=== PATIENT | female | born 1980 | race Caucasian/White ===

== ENCOUNTER 2022-12-07 11:37 | Outpatient (CLI) | payer MEDICARE, SELFPAY | END 2022-12-07 11:38 | disposition home or self-care (01) | PROVIDERS: Visit Provider Family Medicine | DX: Z01.419 Encounter for gynecological examination (general) (routine) without abnormal findings (principal); E66.9 Obesity, unspecified; G43.909 Migraine, unspecified, not intractable, without status migrainosus; R20.2 Paresthesia of skin; Z13.1 Encounter for screening for diabetes mellitus; Z13.6 Encounter for screening for cardiovascular disorders; G25.81 Restless legs syndrome; Z13.29 Encounter for screening for other suspected endocrine disorder; Z13.0 Encounter for screening for diseases of the blood and blood-forming organs and certain disorders involving the immune mechanism | CPT/HCPCS: 80053; 80061; 82306; 82607; 83540; 83550 ==

== ENCOUNTER 2023-12-27 15:47 | Outpatient (CLI) | payer OTHER, SELFPAY | END 2023-12-27 15:48 | disposition home or self-care (01) | PROVIDERS: PCP Family Medicine; Visit Provider Emergency Medicine | DX: E61.1 Iron deficiency (principal); Z13.220 Encounter for screening for lipoid disorders; E53.8 Deficiency of other specified B group vitamins; Z13.1 Encounter for screening for diabetes mellitus | CPT/HCPCS: 80048; 80061; 82607; 82728; 82746 ==

== ENCOUNTER 2024-07-29 04:06 | Day surgery (SDC) | payer OTHER, SELFPAY ==
[2024-07-29] VITALS (22 sets, daily range): BP systolic 117–157; BP diastolic 85–116; PULSE 72–116; RESP 16–20; TEMP 36.1–36.8; O2SAT 92–99; BMI 29.0
--- NOTE | 2024-07-29 04:13 | ED.CHESTPAIN ---
HPI - Chest Pain General Time Seen by Provider: 04:13 Date Seen: 07/29/24 Chief Complaint: Chest Pain Stated Complaint: chest pain Time Seen by Provider: 07/29/24 04:13 Source: patient, family, RN notes reviewed and old records reviewed Mode of arrival: ambulatory Limitations: no limitations History of Present Illness HPI narrative: 43-year-old female who presents today with upper abdominal pain. This started about 9:00 p.m. last night, 7 hours prior to evaluation in the department. She did vomit twice. Pain is constant and radiates into the back. Denies shortness of breath, pain is worse with movement, has not taken anything for her pain. No diarrhea. Prior left oophorectomy and laparoscopy for endometriosis but otherwise no prior abdominal surgeries. Related Data Home Medications ?Medication ?Instructions ?Recorded ?Confirmed fexofenadine 180 mg tablet 180 mg PO QDAY 12/07/22 12/27/23 (Mary Allergy) diphenhydramine HCl 25 mg capsule 25 mg PO QHS PRN 01/16/24 01/16/24 (Benadryl) Previous Rx's ?Medication ?Instructions ?Recorded triamcinolone acetonide 0.1 % 1 applic topical BID #453.6 grams 12/07/22 topical cream ferrous fum-vit C-vit B12-FA 460 1 cap PO QDAY #90 caps 12/08/22 mg-60 mg-0.01 mg-1 mg capsule baclofen 10 mg tablet 10 mg PO BID #180 tabs 12/27/23 duloxetine 60 mg capsule,delayed 60 mg PO DAILY #90 caps 12/27/23 release gabapentin 300 mg capsule 600 mg (2 x 300 mg) PO QPM #180 12/27/23 caps Allergies Allergy/AdvReac Type Severity Reaction Status Date / Time No Known Allergies Allergy Verified 07/29/24 04:17 [facility] Medical History (Updated 07/29/24 @ 06:49 by Bartolome Rivas MD) Contact dermatitis ?L25.9 - Unspecified contact dermatitis, unspecified cause (ICD-10) Rash ?R21 - Rash and other nonspecific skin eruption (ICD-10) Screening for diabetes mellitus ?Z13.1 - Encounter for screening for diabetes mellitus (ICD-10) Screening for hyperlipidemia ?Z13.220 - Encounter for screening for lipoid disorders (ICD-10) History of severe acute respiratory syndrome coronavirus 2 (SARS-CoV-2) disease ?Z86.16 - Personal history of COVID-19 (ICD-10) Endometriosis (10/20/10) ?N80.9 - Endometriosis, unspecified (ICD-10) Endometrioma of ovary ?N80.1 - Endometriosis of ovary (ICD-10) Cyst of ovary ?N83.209 - Unspecified ovarian cyst, unspecified side (ICD-10) Surgical History (Updated 04/14/22 @ 17:27 by Maritza Edwards MD) H/O laparoscopy (03/22/22) ?Z98.890 - Other specified postprocedural states (ICD-10) H/O laparoscopy (10/20/10) ?Z98.890 - Other specified postprocedural states (ICD-10) History of breast surgery ?Z98.890 - Other specified postprocedural states (ICD-10) History of breast biopsy (08/26/13) ?Z98.890 - Other specified postprocedural states (ICD-10) Family History (Updated 04/04/22 @ 14:26 by Layla Moreno) Mother Congenital heart defect Father Diabetes Other Esophageal cancer Social History (Updated 12/27/23 @ 15:51 by Milly Castro MD) Narrative: Has a son, Pasha. : 04/29/2004 vape nicotine, etoh 4 beers/wk Smoking Status: Never smoker Little interest or pleasure in doing things: not at all Feeling down, depressed, or hopeless: not at all Exam Narrative Exam Narrative: General: Well-developed and well-nourished, no acute distress Head: Atraumatic and normocephalic Eyes: Pupils are equal reactive, extraocular motions intact, conjunctiva clear ENT: External nose and ears are normal, posterior pharynx without erythema or exudate Neck: No midline cervical tenderness, full spontaneous range of motion the neck, trachea midline, no adenopathy Heart: Regular rate and rhythm no murmurs or thrills Lungs: Clear to auscultation bilaterally without wheezes or crackles Abdomen: Soft, right upper quadrant and epigastric tenderness, nondistended with active bowel sounds Musculoskeletal: No tenderness, deformity, or edema Neurologic: Awake, alert, and oriented x3, no gross focal neurologic deficits, cranial nerves intact as tested Psych: Mood and affect are appropriate Skin: No rashes Const Vital Signs, click to edit/add: Vital Signs - 24 hr 07/29/24 04:13 Temperature 97.6 F Pulse Rate [Right Pulse Oximeter] 95 Respiratory Rate 18 Blood Pressure [Right Upper Arm] 138/115 H Pulse Oximetry 98 Oxygen Delivery Method Room Air Course Course ED Course: Patient seen examined, reviewed most recent office visit from December 2023, that visit addressed chronic neck pain and patient is on disability is, also history of depression in was doing well at that time. Patient presents today with upper abdominal pain along with vomiting that started about 7 hours ago. On exam, she has right upper quadrant and epigastric tenderness. Concern for acute cholecystitis, biliary colic, pancreatitis. No right lower quadrant tenderness to suggest acute appendicitis. Consider CT scan of the abdomen and pelvis but given likely biliary source, right upper quadrant ultrasound is ordered. Labs ordered along with Zofran and Dilaudid for symptom management. EKG independently interpreted by me performed at 4:19 a.m. demonstrates sinus rhythm rate 83, no acute ST elevations or depressions, normal axis, normal intervals, ID 140, QTC 413. Reevaluation(s) Time of Reevaluation #1: 05:36 Reevaluation #1: Labs ordered and independently interpreted by me with normal CBC, normal hepatic panel, normal lipase, mild hyponatremia and hypokalemia, negative troponin. Time of Reevaluation #2: 06:44 Reevaluation #2: Reviewed radiology interpretation of ultrasound which demonstrates acute cholecystitis with cholelithiasis. Updated patient with plan, unfortunately she was drinking fluids in the department after told her to not drink anything. Will discuss with general surgery. Time of Reevaluation #3: 07:21 Reevaluation #3: Care discussed with Dr. Pollard who will see the patient in the department. Anticipate sign out to oncoming provider. Vital Signs Vital signs: Initial Vital Signs Temperature 97.6 F 07/29/24 04:13 Temperature Source Temporal Artery Scan 07/29/24 04:13 Pulse Rate 95 07/29/24 04:13 Pulse Rhythm Regular 07/29/24 04:13 Pulse Strength 3+ Normal 07/29/24 04:13 Respiratory Rate 18 07/29/24 04:13 Blood Pressure 138/115 H 07/29/24 04:13 Blood Pressure Mean 122 H 07/29/24 04:13 Blood Pressure Position Sitting 07/29/24 04:13 Pulse Oximetry 98 07/29/24 04:13 Oxygen Delivery Method Room Air 07/29/24 04:13 Vital Signs Temperature 97.6 F 07/29/24 04:13 Pulse Rate 95 07/29/24 04:13 Respiratory Rate 18 07/29/24 04:13 Blood Pressure 138/115 H 07/29/24 04:13 Pulse Oximetry 98 07/29/24 04:13 Oxygen Delivery Method Room Air 07/29/24 04:13 Temperature 97.6 F 07/29/24 04:13 Pulse Rate 95 07/29/24 04:13 Respiratory Rate 18 07/29/24 04:13 Blood Pressure 138/115 H 07/29/24 04:13 Pulse Oximetry 98 07/29/24 04:13 Oxygen Delivery Method Room Air 07/29/24 04:13 Medications Administered Medications: Generic Name Dose Route Start Last Admin Trade Name Freq PRN Reason Stop Dose Admin Hydromorphone HCl 0.5 mg 07/29/24 06:44 07/29/24 06:53 Hydromorphone 0.5 Mg/0.5 Ml Inj IVP 07/29/24 06:45 0.5 mg ONCE ONE Administration Discontinued Medications Generic Name Dose Route Start Last Admin Trade Name Freq PRN Reason Stop Dose Admin Hydromorphone HCl 0.5 mg 07/29/24 04:35 07/29/24 05:02 Hydromorphone 0.5 Mg/0.5 Ml Inj IVP 07/29/24 04:36 0.5 mg ONCE ONE Administration Ondansetron HCl 4 mg 07/29/24 04:35 07/29/24 05:02 Ondansetron 2 Mg/Ml Inj IVP 07/29/24 04:36 4 mg ONCE ONE Administration MDM - Chest Pain Lab Data Labs: Lab Results 07/29/24 07/29/24 Range/Units 04:37 04:44 WBC 10.07 (4.50-11.00) K/uL RBC 4.53 (4.00-5.20) m/uL Hgb 14.1 (12.0-16.0) gm/dL Hct 41.6 (33.0-51.0) % MCV 92 (80-100) fL MCH 31 (26-34) pg MCHC 34 (32-36) gm/dL RDW Coeff of Phill 12.1 (11.5-15.5) % Plt Count 275 (140-440) K/uL Neut % (Auto) 80.1 H (42.0-72.0) % Lymph % (Auto) 11.2 L (20-44) % [place] % (Auto) 5.9 (0.0-11.0) % Eos % (Auto) 2.3 (0.0-7.0) % Baso % (Auto) 0.4 (0.0-3.0) % Neut # (Auto) 8.10 H (1.7-7.0) K/uL Lymph # (Auto) 1.10 (0.90-2.90) K/uL [place] # (Auto) 0.60 (0.00-0.90) K/UL Eos # (Auto) 0.23 (0.00-0.50) K/uL Baso # (Auto) 0.04 (0.00-0.30) K/uL Abs Immat Gran (auto) 0.01 (0.00-0.30) K/uL Imm/Tot Granulo (auto) 0.1 % Sodium 131 L (135-149) mmol/L Potassium 3.5 L (3.6-5.1) mmol/L Chloride 98 (96-114) mmol/L Carbon Dioxide 23 (20-32) mmol/L Anion Gap 10 (7-15) mEq/L BUN 8 (5-24) mg/dL Creatinine 0.9 (0.5-1.5) mg/dL Estimated Creat Clear 96.93 Estimated GFR 82 ml/min Glucose 103 (60-115) mg/dL Calcium 8.7 (8.4-10.6) mg/dL Magnesium 2.1 (1.5-2.6) mg/dL Total Bilirubin 0.7 (0.1-1.5) mg/dL Direct Bilirubin 0.2 (0.0-0.5) mg/dL AST 28 (12-35) U/L ALT 34 (4-35) U/L Alkaline Phosphatase 92 (40-150) U/L Total Protein 6.9 (6.0-8.3) g/dL Albumin 4.1 (3.3-5.0) g/dL Lipase 86 (23-300) U/L POC Troponin I 0.00 L (0.01-0.04) ng/ml Discharge Plan Discharge Clinical Impression: Cholelithiasis and acute cholecystitis without obstruction Prescriptions: No Action fexofenadine [Mary Allergy] 180 mg tablet 180 mg PO QDAY triamcinolone acetonide 0.1 % cream 1 applic topical BID Qty: 453.6 0RF gabapentin 300 mg capsule 600 mg PO QPM Qty: 180 3RF duloxetine 60 mg capsule,delayed release(DR/EC) 60 mg PO DAILY Qty: 90 3RF baclofen 10 mg tablet 10 mg PO BID Qty: 180 3RF diphenhydramine HCl [Benadryl] 25 mg capsule 25 mg PO QHS PRN ferrous fum-vit C-vit B12-FA 460-60-0.01-1 mg capsule 1 cap PO QDAY Qty: 90 1RF Follow Up/Referrals: Milly Castro MD [Primary Care Provider] -
--- NOTE | 2024-07-29 04:35 | US_ITS ---
Patient: JOSEPH MEJIA Facility:?[facility] Patient ID:?[id number] Site Patient ID:?[id number]. Site :?[id number] Study:?US-Abdomen RUQ-07/29/2024 6:07:58 AM Ordering Physician:Avila Mancuso Final Report: INDICATION: Right upper quadrant abdomen pain. TECHNIQUE: Ultrasound abdomen limited. Sonographic images of the right upper quadrant were obtained using kramer-scale and color Doppler images. COMPARISON: CT abdomen and pelvis January 2022 FINDINGS: Limited exam secondary to patient`s body habitus and bowel gas. Liver: There is difficult visualization of the liver secondary to patient`s body habitus, and technique. No obvious intrahepatic biliary ductal dilatation. Diffuse increase in liver echogenicity. Gallbladder is distended with multiple there is asymmetric gallbladder wall thickening (4 millimeter) is identified. Minimal pericholecystic fluid is identified, predominantly along the fundus.. Common bile duct is of normal caliber measuring 4 millimeter. Positive Hawley`s sign was identified during the sonographic examination. Pancreas is not fully visualized. Included pancreatic head and proximal body show normal echotexture. Right kidney measures 13.0 x 5.7 x 4.8 centimeter. No hydronephrosis. Proximal aorta is of normal caliber and measures 2.4 centimeter. IMPRESSION: Findings are concerning for acute cholecystitis with cholelithiasis. Diffuse hepatic steatosis. Dictated by Dolores Rogers MD @ 07/29/2024 6:32:19 AM Signed by:?Dolores Rogers MD @07/29/2024 6:32:19 AM (Electronic Signature)
[2024-07-29 04:49] LABS: Basophils Absolute Auto 0.04 K/uL (0.00-0.30); Basophils Percent Auto 0.4 % (0.0-3.0); Eosinophils Absolute Auto 0.23 K/uL (0.00-0.50); Eosinophils Percent Auto 2.3 % (0.0-7.0); Hematocrit 41.6 % (33.0-51.0); Hemoglobin* 14.1 gm/dL (12.0-16.0); Immature Granulocytes Abs Auto 0.01 K/uL (0.00-0.30); Immature Granulocytes Pct Auto 0.1 %; Lymphocytes Percent Auto 11.2 % (20-44); Mean Corpuscular HGB Conc 34 gm/dL (32-36); Mean Corpuscular Hemoglobin 31 pg (26-34); Mean Corpuscular Volume 92 fL (80-100); Monocytes Percent Auto 5.9 % (0.0-11.0); Neutrophils Percent Auto 80.1 % (42.0-72.0); Platelet Count* 275 K/uL (140-440); RDW Coefficient of Variation % 12.1 % (11.5-15.5); Red Blood Count 4.53 m/uL (4.00-5.20); White Blood Count* 10.07 K/uL (4.50-11.00)
[2024-07-29 04:56] LABS: Slide Review Reflex No
[2024-07-29 05:02] LABS: Albumin* 4.1 g/dL (3.3-5.0); Chloride* 98 mmol/L (96-114); Potassium* 3.5 mmol/L (3.6-5.1); Sodium* 131 mmol/L (135-149)
[2024-07-29] MEDS: HYDROmorphone 0.5 mg/0.5 ml inj IVP ×4 (05:02→11:05)
[2024-07-29] MEDS: ONDANSETRON 2 MG/ML inj 4 MG IVP (05:02)
[2024-07-29 05:04] LABS: Anion Gap 10 mEq/L (7-15); Carbon Dioxide* 23 mmol/L (20-32); Creatinine* 0.9 mg/dL (0.5-1.5); Est. Creatinine Clearance* 96.93; Estimated Glomerular Filt Rate 82 ml/min
[2024-07-29 05:05] LABS: Alanine Aminotransferase* 34 U/L (4-35); Alkaline Phosphatase* 92 U/L (40-150); Aspartate Amino Transferase* 28 U/L (12-35); Bilirubin Direct* 0.2 mg/dL (0.0-0.5); Bilirubin Total* 0.7 mg/dL (0.1-1.5); Blood Urea Nitrogen* 8 mg/dL (5-24); Calcium* 8.7 mg/dL (8.4-10.6); Glucose* 103 mg/dL (60-115); Lipase* 86 U/L (23-300); Magnesium* 2.1 mg/dL (1.5-2.6); Total Protein* 6.9 g/dL (6.0-8.3)
--- OUTSIDE RECORDS SUMMARY | 2024-07-29 05:36 | XMS_ITS | Clinical Summary ---
Author Organization [facility] Address [place] [address] Care Team Providers Care [employer] Director Name Role Phone Bry Terrazas MD Primary Care Provider [phone] Social History Tobacco Use Types Packs/Day Years Used Date Smoking Tobacco: Never Assessed Sex and Gender Information Value Date Recorded Sex Assigned at Not on file Gender Identity Not on file Sexual Orientation Not on file Plan of Treatment Health Maintenance Due Date Last Done Comments Tdap 1992 Depression screening for age 12+ 1993 HIV for age 15-65 1996 BMI (ht and wt on same day) for age 18+ 1999 Hepatitis C screening for age 18-79 1999 Tetanus booster 2001 Pap test for age 21-65 03/26/2021 8, 03/26/2018, 11/26/2014, Additional history exists COVID-19 vaccine series (2023- season) 2024 Influenza for age 9-49 06/09/2024 Pneumococcal series for age 6-64 Aged Out No longer eligible based on patient's age to complete this topic Procedures Procedure Name Priority Date/Time Associated Diagnosis Comments 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 Case: [id number] ? Authorizing Provider: ??Sarai Rousseau ??Collected: ? 03/26/2018 1000 ? M, MD ? First Screen: ?Laura Lincoln ? Received: ?03/27/2018 1226 ? Specimen: ?CEMENT STORAGE WORKER ThinPrep Vial Screening, Cervical/Vaginal ? 04/03/2018 10:24 AM CDT [facility]AL [facility]ORY INTERPRETATION/ RESULT NEGATIVE FOR INTRAEPITHELIAL LESION OR MALIGNANCY (NIL) (none) 04/03/2018 10:24 AM CDT [facility] [employer] LABORATORY-C ENTRAL LABORATORY IMEN ADEQUACY Satisfactory for evaluation Endocervical component present 04/03/2018 10:24 AM CDT [facility]-C ENTRAL LABORATORY HPV REQUEST HPV and PAP 04/03/2018 10:24 AM CDT [facility] ENTRAL LABORATORY Date of LMP 03/04/2018 04/03/2018 10:24 AM CDT [facility] ENTRAL LABORATORY Last Pap Date 11/26/2014 04/03/2018 10:24 AM CDT [facility] [employer] LABORATORY-C ENTRAL LABORATORY Last Pap Result NIL 06/26/201 8 10:24 AM CDT [facility] ENTROR LABORATORY Comment:- HPV Automated Review Successful 04/03/2018 10:24 AM CDT [facility] ENTROR LABORATORY Comment:Specimen processed s uccessfully by automated music pastor device, ThinPrep Imaging System, [employer] ANCILLARY TESTING CEMENT STORAGE WORKER HPV Ordered, Please see separate report 04/03/2018 10:24 AM CDT [facility] ENTR[facility] LABORATORY Note The pap test is a screening technique, not a diagnostic procedure. ??It is used primarily to screen for squamous cancers and precursor lesions. ??Published studies have shown that it is subject to both false negative and false positive results. ??The pap test should not be used as the sole means to diagnose or exclude pre-malignant and malignant lesions. Cytology is screened and interpreted at [facility] - [address], [place] [address] and [facility] - [address]; [place] [address] and [facility] - [address]; [place] [address] and [facility] [address]; [place] [address] 04/03/2018 10:24 AM T [facility] Other (Cervical/Vagina l) 03/26/2018 10:00 AM CDT 03/27/2018 12:26 PM CDT Sarai Rousseau MD PATHOLOGY/ CYTOLOGY [facility] [address] [place] [address], from Last 3 Months or Most Recently Relevant to Health Maintenance Care Teams [employer] Director Relationship Specialty Start Date End Date Bry Terrazas MD PCP - General Family Practice 04/04/18
[2024-07-29] MEDS: PIPERACILLIN/TAZOBACTAM 3.375 GM in 0.9 % SODIUM CHLORIDE Mini-bag 100 ML IVPB (07:38)
--- NOTE | 2024-07-29 09:52 | PM.GSCN ---
History of Present Illness Consult details Date Seen: 07/29/24 Consult date: 07/29/24 Narrative: 43-year-old female presented to emergency room with epigastric abdominal pain that started last night. Patient had cracker barrel pot roast for dinner and 2 hours after her dinner, she started to experience severe pain. Patient described the pain as in epigastrium and radiating to her back. She was having a hard time finding a comfortable position. She had nausea and vomited twice. Then she was having difficulties taking a deep breath because of the pain. Patient decided to come to the emergency room. I personally reviewed her workup in the emergency room. Patient was found to have EKG that was not concerning for cardiac etiology. Her troponin was normal. Her WBC was normal. Liver function tests were normal. An abdominal ultrasound was obtained that showed asymmetric gallbladder wall thickening. The common bile duct was 5 mm and there was evidence of cholelithiasis. Patient denies any previous similar symptoms. Review of Systems Narrative: General: no fevers HENT: no problems swallowing CV: no shortness of breath Resp: no cough GI: No nausea, vomiting, abdominal pain : no dysuria, no increased urinary frequency, no hematuria Skin: no new rashes Musculoskeletal: no back pain Neuro: no muscle weakness Psyche: no depression, no anxiety PFSH PFSH Medical History (Updated 07/29/24 @ 06:49 by Bartolome Rivas MD) Contact dermatitis ?L25.9 - Unspecified contact dermatitis, unspecified cause (ICD-10) Rash ?R21 - Rash and other nonspecific skin eruption (ICD-10) Screening for diabetes mellitus ?Z13.1 - Encounter for screening for diabetes mellitus (ICD-10) Screening for hyperlipidemia ?Z13.220 - Encounter for screening for lipoid disorders (ICD-10) History of severe acute respiratory syndrome coronavirus 2 (SARS-CoV-2) disease ?Z86.16 - Personal history of COVID-19 (ICD-10) Endometriosis (10/20/10) ?N80.9 - Endometriosis, unspecified (ICD-10) Endometrioma of ovary ?N80.1 - Endometriosis of ovary (ICD-10) Cyst of ovary ?N83.209 - Unspecified ovarian cyst, unspecified side (ICD-10) Surgical History (Updated 04/14/22 @ 17:27 by Maritza Edwards MD) H/O laparoscopy (03/22/22) ?Z98.890 - Other specified postprocedural states (ICD-10) H/O laparoscopy (10/20/10) ?Z98.890 - Other specified postprocedural states (ICD-10) History of breast surgery ?Z98.890 - Other specified postprocedural states (ICD-10) History of breast biopsy (08/26/13) ?Z98.890 - Other specified postprocedural states (ICD-10) Family History (Updated 04/04/22 @ 14:26 by Layla Moreno) Mother Congenital heart defect Father Diabetes Other Esophageal cancer Social History (Updated 12/27/23 @ 15:51 by Milly Castro MD) Narrative: Has a son, Pasha. : 04/29/2004 vape nicotine, etoh 4 beers/wk Smoking Status: Never smoker How often do you have a drink containing alcohol: monthly or less AUDIT-C Alcohol total score: 1 Non-prescribed substance use: denies use Caffeine: Yes Little interest or pleasure in doing things: not at all Feeling down, depressed, or hopeless: not at all Meds Home Medications and Allergies Home Medications ?Medication ?Instructions ?Recorded ?Confirmed ?Type fexofenadine 180 mg tablet 180 mg PO QDAY 12/07/22 12/27/23 History (Mary Allergy) diphenhydramine HCl 25 mg capsule 25 mg PO QHS PRN 01/16/24 01/16/24 History (Benadryl) Allergies Allergy/AdvReac Type Severity Reaction Status Date / Time No Known Allergies Allergy Verified 07/29/24 04:17 Exam Narrative: Exam Narrative: General appearance: Alert, cooperative, and in no distress Pulmonary: Chest symmetric, lungs clear bilaterally Cardiovascular Heart: Regular rate and rhythm, S1, S2, no murmurs/rubs/gallops Gastrointestinal Abdominal: soft, not distended, tender to palpation in epigastrium and right upper quadrant, there is rebound tenderness in the right upper quadrant with positive Hawley's sign. Skin: Normal skin color, texture, and turgor. No rashes or lesions. Psychiatric: Alert, cooperative, normal affect. Const: Vital Signs, click to edit/add: Vital Signs - 24 hr 07/29/24 04:13 07/29/24 04:31 07/29/24 06:01 Temperature 97.6 F Pulse Rate [Right Pulse Oximeter] 95 Respiratory Rate 18 Blood Pressure 144/106 H 147/102 H Blood Pressure [Ri ght Upper Arm] 138/115 H Pulse Oximetry 98 Oxygen Delivery Me thod Room Air 07/29/24 06:31 07/29/24 07:01 07/29/24 07:31 Temperature Pulse Rate [Right Pulse Oximeter] Respiratory Rate Blood Pressure 152/100 H 156/97 H 154/100 H Blood Pressure [Ri ght Upper Arm] Pulse Oximetry Oxygen Delivery Me thod 07/29/24 08:01 07/29/24 08:31 Temperature Pulse Rate [Right Pulse Oximeter] Respiratory Rate Blood Pressure 154/116 H 147/91 H Blood Pressure [Ri ght Upper Arm] Pulse Oximetry Oxygen Delivery Me thod Results Labs Labs: Abnormal lab results 07/29/24 07/29/24 Range/Units 04:37 04:44 Neut % (Auto) 80.1 H (42.0-72.0) % Lymph % (Auto) 11.2 L (20-44) % Neut # (Auto) 8.10 H (1.7-7.0) K/uL Sodium 131 L (135-149) mmol/L Potassium 3.5 L (3.6-5.1) mmol/L POC Troponin I 0.00 L (0.01-0.04) ng/ml Diabetes panel 07/29/24 Range/Units 04:44 Sodium 131 L (135-149) mmol/L Potassium 3.5 L (3.6-5.1) mmol/L Chloride 98 (96-114) mmol/L Carbon Dioxide 23 (20-32) mmol/L BUN 8 (5-24) mg/dL Creatinine 0.9 (0.5-1.5) mg/dL Glucose 103 (60-115) mg/dL Calcium 8.7 (8.4-10.6) mg/dL AST 28 (12-35) U/L ALT 34 (4-35) U/L Alkaline Phosphatase 92 (40-150) U/L Total Protein 6.9 (6.0-8.3) g/dL Albumin 4.1 (3.3-5.0) g/dL Calcium panel 07/29/24 Range/Units 04:44 Calcium 8.7 (8.4-10.6) mg/dL Albumin 4.1 (3.3-5.0) g/dL Pituitary panel 07/29/24 Range/Units 04:44 Sodium 131 L (135-149) mmol/L Potassium 3.5 L (3.6-5.1) mmol/L Chloride 98 (96-114) mmol/L Carbon Dioxide 23 (20-32) mmol/L BUN 8 (5-24) mg/dL Creatinine 0.9 (0.5-1.5) mg/dL Glucose 103 (60-115) mg/dL Calcium 8.7 (8.4-10.6) mg/dL Adrenal panel 07/29/24 Range/Units 04:44 Sodium 131 L (135-149) mmol/L Potassium 3.5 L (3.6-5.1) mmol/L Chloride 98 (96-114) mmol/L Carbon Dioxide 23 (20-32) mmol/L BUN 8 (5-24) mg/dL Creatinine 0.9 (0.5-1.5) mg/dL Glucose 103 (60-115) mg/dL Calcium 8.7 (8.4-10.6) mg/dL Total Bilirubin 0.7 (0.1-1.5) mg/dL AST 28 (12-35) U/L ALT 34 (4-35) U/L Alkaline Phosphatase 92 (40-150) U/L Total Protein 6.9 (6.0-8.3) g/dL Albumin 4.1 (3.3-5.0) g/dL All other labs normal. Progress Note:A&P Assessment and plan (1) Cholelithiasis and acute cholecystitis without obstruction: Status: Acute Assessment and Plan: 43-year-old female presented to emergency room with epigastric abdominal pain that is most likely due to acute cholecystitis. I discussed with the patient her laboratory and imaging findings. Patient has thickened gallbladder wall on the ultrasound. On clinical exam she has right upper quadrant rebound tenderness and positive Hawley sign. These findings are suspicious for acute cholecystitis. I recommended to proceed with laparoscopic cholecystectomy. The procedure was discussed in detail. The risks associated procedure including infection, bleeding, injury to intra-abdominal organs, and injury to the common bile duct were all discussed with the patient, and she agreed to proceed.
--- OUTSIDE RECORDS SUMMARY | 2024-07-29 10:20 | XMS_ITS | Clinical Summary ---
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 Case: [id number] ? Authorizing Provider: ??Sarai Rousseau ??Collected: ? 03/26/2018 1000 ? M, MD ? First Screen: ?Laura Lincoln ? Received: ?03/27/2018 1226 ? Specimen: ?VICE PRESIDENT MARKETING [employer] DEVELOPMENT ThinPrep Vial Screening, Cervical/Vaginal ? 04/03/2018 10:24 AM CDT [facility] INTERPRETATION/ RESULT NEGATIVE FOR INTRAEPITHELIAL LESION OR MALIGNANCY (NIL) (none) 04/03/2018 10:24 AM CDT [facility] ENTRAL LABORATORY IMEN ADEQUACY Satisfactory for evaluation Endocervical component present 04/03/2018 10:24 AM CDT [facility] HPV REQUEST HPV and PAP 04/03/2018 10:24 AM CDT [facility] Date of LMP 03/04/2018 04/03/2018 10:24 AM CDT [facility] Last Pap Date 11/26/2014 04/03/2018 10:24 AM CDT [facility] EN[facility] Last Pap Result NIL 06/26/201 8 10:24 AM CDT [facility] Comment:- HPV Automated Review Successful 04/03/2018 10:24 AM CDT [facility] Comment:Specimen processed s uccessfully by automated crew lead device, ThinPrep Imaging System, [employer] ANCILLARY TESTING VICE PRESIDENT MARKETING & DEVELOPMENT HPV Ordered, Please see separate report 04/03/2018 10:24 AM CDT [facility] Note The pap test is a [...] lesions. Cytology is screened and interpreted at [facility] - [address], [place] [address] and [facility] - [address]; [place] [address] and [facility] - [address]; [place] [address] and [facility] [address]; [place] [address] 04/03/2018 10:24 AM T [facility] Other (Cervical/Vagina l) 03/26/2018 10:00 AM CDT 03/27/2018 12:26 PM CDT Sarai Rousseau MD PATHOLOGY/ CYTOLOGY [facility] [address] [place] [address], from Last 3 Months or Most Recently Relevant to Health Maintenance Care Teams Wire Coating Operator Metal Relationship Specialty Start Date End Date Bry Terrazas MD PCP - General Family Practice 04/04/18
[2024-07-29] MEDS: LACTATED RINGERS 1000 ML 1,000 ML 100 ML IV (11:05)
[2024-07-29] MEDS: SODIUM CHLORIDE 0.9 % (FLUSH) 10 ML SYRINGE IVF (11:06)
--- NOTE | 2024-07-29 11:09 | P.ANES_ITS ---
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
[2024-07-29] MEDS: BUPIVACAINE 0.25% 30 ML 10 ML INJECTION (11:28)
[2024-07-29] MEDS: LIDOCAINE 1%-EPI 1:100,000 10 ML INFILTRATI (11:28)
--- NOTE | 2024-07-29 11:43 | P.GSOP_ITS ---
Operative Note Date of procedure: 07/29/24 Pre-op diagnosis: 1. Acute cholecystitis. Post-op diagnosis: 1. Acute cholecystitis. Type of Procedure: 1. Laparoscopic cholecystectomy. Indications: 43-year-old female presented to emergency room with epigastric pain radiating to her back that started last night after dinner. Patient stated that the pain was severe and patient was not able to find a comfortable position due to pain. She had nausea and vomiting. She presented to the emergency room overnight. She was found to have normal WBC. Liver function tests were normal. Her troponin was normal. Ultrasound was obtained that showed gallbladder wall thickening with cholelithiasis. The common bile duct was normal in size. On clinical exam patient had tenderness to palpation in epigastrium and mostly right upper quadrant with involuntary guarding in the right upper quadrant and positive Hawley sign. This was concerning for acute cholecystitis. The procedure was discussed in detail. The risks associated procedure including infection, bleeding, and injury to intra-abdominal organs as well as injury to the common bile duct were all discussed with the patient, and she agreed to proceed. Procedure Description: After discussing the risks and benefits of the procedure, the patient signed informed consent.? The operative site was marked and the patient was brought to the operating room and placed on the operating table in supine position.? Care was taken to pad the patient's pressure points.?? The patient was then intubated by anesthesia.?? The operative site was then prepped and draped in the usual sterile fashion.? A time-out was then performed. A 5-mm laparoscopy port was placed in the left upper quadrant guided by a 5-mm laparoscope placed into a translucent trochar.~ Passage through the layers of the abdominal wall was visualized with the laparoscope.~ A pneumoperitoneum was established. A 0-degree 5-mm laparoscope was advanced into the abdomen. The abdomen was briefly surveyed, and no adhesions were noted. A 10-mm port were placed infraumbilically and two more 5 mm ports were placed on the right under direct visualization by laparoscope. The camera was then changed to 10 mm 30- degree scope and placed into the abdomen through the 10 mm port. The left upper quadrant port entrance was examined and no injury to intra-abdominal organs was identified. The gallbladder was identified, and was taut. There was ascitic fluid adjacent to the gallbladder, and that was suctioned out. The gallbladder was decompressed with a laparoscopic needle and 60 cc syringe, and 50 cc of green bile was suctioned out. The fundus grasped and retracted cephalad. The infundibulum was grasped and retracted laterally. Omentum was overlying the gallbladder infundibulum. This was mobilized with hook cautery and bluntly dissected with [place] grasper. The triangle of Calot was identified and overlying peritoneum and divided with hook cautery. Common bile duct was not identified but care was taken not to injure it. Moderate amount of edema was seen surrounding the gallbladder. The cystic duct was clearly identified and bluntly dissected circumferentially. Cystic artery was identified and was small. The cystic artery was overlying anterior cystic duct. This was circumferentially dissected with [place] grasper. The cystic artery was then clipped with two 5 mm clips on the patient's side and a single clip on the specimen side and divided with scissors. This allowed for better visualization of the cystic duct. The cystic duct was clearly going into the gallbladder. The cystic duct was then doubly ligated with surgical clips on the patient's side and singly clipped on the gallbladder side and divided. I stayed close to the infundibulum and one of the clips did not completely go across the superior cystic duct lumen. The cystic duct was then divided between the clips, and 0-0 PDS Endoloop was used to secure the cystic duct stump just proximal to the cystic duct clips. The clip on the gallbladder itself fell off and a few small cholesterol stones spilled into the abdominal cavity. There is gallbladder opening was grasped to avoid further spillage of bile and gallstones. All spilled gallstones were collected and removed from the abdomen. The gallbladder was dissected from the liver bed in retrograde fashion using hookcautery. The gallbladder was placed into an Endo-Catch bag and removed through the infraumbilical incision. The fascial opening of the infraumbilical incision had to be enlarged to accommodate removal of the gallbladder. Surgical site was examined for bleeding. No bleeding was seen in the surgical field. The fascia of the infraumbilical incision was then closed with a running 0-0 vicryl. This closure was examined intra-abdominal he, and no intra-abdominal organs were incarcerated in the closure. Pneumoperitoneum was completely reduced after viewing removal of the trocars under direct vision. The skin was then closed with 4-0 monocryl and steristrips were applied. Instrument, sponge, and needle counts were correct at closure and at the conclusion of the case. The patient was transferred to PACU in stable condition. Findings: Acute inflammation surrounding gallbladder. Anesthesia: GETA Surgeon: John Pollard MD Estimated blood loss (mL): 5 Specimen: Gallbladder Condition: stable Disposition: PACU
[2024-07-29] MEDS: CEFAZOLIN 2 GM INJ IVP (12:19)
--- NOTE | 2024-07-29 12:48 | SUR.OPER ---
PATIENT QUESTIONS ANSWERED SATISFACTORILY PREOPERATIVELY. PATIENT BROUGHT TO OR #4 PER CART. Patient positioned supine on OR #4 bed. The perioperative team supported arms bilaterally on arm boards. Final approval of positioning by surgeon.
--- NOTE | 2024-07-29 14:21 | P.ANES_ITS ---
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
--- NOTE | 2024-07-29 15:06 | SUR.PHASEII ---
Patient tolerated water, sprite, crackers.
[2024-07-29] MEDS: HYDROCODONE-ACETAMIN 5-325 MG 1 TAB PO (15:15)
--- NOTE | 2024-07-29 16:00 | SUR.PHASEII ---
Pt voided prior to discharge. Patient verbalized readiness to be discharged and understanding of discharge instructions.
== END 2024-07-29 16:01 | disposition home or self-care (01) ==
LOC: ED 10:16 → OR 10:19
PROVIDERS: Emergency Provider Family Medicine; PCP Emergency Medicine; Visit Provider Surgery
PROC: 0FT44ZZ Resection of Gallbladder, Percutaneous Endoscopic Approach (ICD-10-PCS; CPT 47562; principal; 2024-07-29 11:00)
DX: K80.00 Calculus of gallbladder with acute cholecystitis without obstruction (principal); R10.13 Epigastric pain; R94.31 Abnormal electrocardiogram [ECG] [EKG]; R07.9 Chest pain, unspecified
CPT/HCPCS: 47562; 00790; 36415; 76705; 80048; 80076; 81001; 81025; 83690; 83735; 84484; 85025; 88304; 93005; 99100; 99140; 99285; A9270; J0330; J0665; J0690; J1100; J1171; J1630; J1885; J2405; J2543; J2704; J3010; J3490; J7120